=== PATIENT | female | born 1970 | race Caucasian/White ===

== ENCOUNTER 2022-04-14 09:09 | Day surgery (SDC) | payer MEDICAID ==
[~2022-04-14] VITALS: Ht 172.7 cm; Wt 72.3 kg
[~2022-04-14 09:09] MED LIST: LIDOcaine 1% 30ml preserv. free vial SQ STA
[2022-04-14 09:27] VITALS: BP 139/86
[2022-04-14] MEDS ORDERED: CARI-515 PO (09:52)
[2022-04-14] MEDS ORDERED: SUMA25TA35 PO (09:52)
[2022-04-14] MEDS ORDERED: ATRIN (09:52)
[2022-04-14] MEDS ORDERED: PROM25TA14 (09:52)
[2022-04-14] MEDS ORDERED: INDLA80C (09:52)
[2022-04-14] MEDS ORDERED: LEVA15HF4 INH (09:53)
[2022-04-14] MEDS ORDERED: IBUP200C2 (09:53)
[2022-04-14] MEDS ORDERED: [UNRECOGNIZED DRUG - CODE] (09:54)
[2022-04-14 10:55] VITALS: BP 142/98
[2022-04-14 11:00] VITALS: BP 147/96
[2022-04-14 11:15] VITALS: BP 136/88
[2022-04-14 11:30] VITALS: BP 133/72
== END 2022-04-14 11:45 | disposition home or self-care (01) ==
LOC: SSTAY O 09:09
PROVIDERS: ATTEND Nurse Practitioner
DX: E04.1 Nontoxic single thyroid nodule (principal); I10 Essential (primary) hypertension; J45.909 Unspecified asthma, uncomplicated; Z88.5 Allergy status to narcotic agent; Z88.8 Allergy status to other drugs, medicaments and biological substances; Z79.899 Other long term (current) drug therapy
CPT/HCPCS: 10005

== ENCOUNTER 2023-05-07 11:03 | Day surgery (SDC) | payer MEDICAID ==
[~2023-05-07] VITALS: Ht 172.7 cm; Wt 79.3 kg
[~2023-05-07 11:03] MED LIST changes: +ATRIN; +CARI-515 PO; +IBUP200C2; +INDLA80C; +LEVA15HF4 INH; -LIDOcaine 1% 30ml preserv. free vial SQ STA; +PROM25TA14; +SUMA25TA35 PO; +[UNRECOGNIZED DRUG - CODE]
[2023-05-07 11:30] VITALS: BP 117/71; PULSE 74; RESP 15; TEMP 98.2; O2SAT 99
[2023-05-07] MEDS ORDERED: ATOR40TA72 PO (11:33)
[2023-05-07] MEDS ORDERED: ASPI-1265 PO (11:33)
[2023-05-07] MEDS ORDERED: CLOP75TA34 PO (11:33)
[2023-05-07] MEDS ORDERED: QUET50TA24 (11:33)
[2023-05-07] MEDS ORDERED: LURA20TA2 (11:33)
== END 2023-05-07 12:15 | disposition home or self-care (01) ==
LOC: SSTAY O 11:03
PROVIDERS: ATTEND Nurse Practitioner
DX: E04.1 Nontoxic single thyroid nodule (principal); Z53.8 Procedure and treatment not carried out for other reasons